=== PATIENT | male | born 1985 | race Caucasian/White ===

== ENCOUNTER 2018-07-11 19:54 | Emergency (ER) | payer OTHER ==
[2018-07-11 21:49] VITALS: BP 120/79
== END 2018-07-11 21:49 | disposition home or self-care (01) ==
LOC: ED 19:54
DX: S81.811A Laceration without foreign body, right lower leg, initial encounter (principal); J45.909 Unspecified asthma, uncomplicated; I10 Essential (primary) hypertension; W26.0XXA Contact with knife, initial encounter; Y93.89 Activity, other specified; Y92.89 Other specified places as the place of occurrence of the external cause; Y99.8 Other external cause status
CPT/HCPCS: 90715; J2001

== ENCOUNTER 2018-07-28 13:36 | Emergency (ER) | payer OTHER ==
[~2018-07-28] VITALS: Ht 182.9 cm; Wt 86.2 kg
[2018-07-28 13:38] VITALS: BP 143/88; Ht 182.9 cm; Wt 86.2 kg
== END 2018-07-28 15:00 | disposition home or self-care (01) ==
LOC: ED 13:36
DX: S81.011D Laceration without foreign body, right knee, subsequent encounter (principal); X58.XXXD Exposure to other specified factors, subsequent encounter

== ENCOUNTER 2018-10-22 22:31 | Emergency (ER) | payer SELFPAY ==
[~2018-10-22] VITALS: Ht 182.9 cm; Wt 82.6 kg
[2018-10-22 22:49] VITALS: Ht 182.9 cm; Wt 82.6 kg
[2018-10-22 23:50] LABS: CARBON DIOXIDE 28.7 mmol/L (21-32); CHLORIDE SERUM 104 mmol/L (98-107); CREATININE SERUM 1.1 mg/dL (0.7-1.3); GFR1 > 60 mL/min; GLUCOSE SERUM 133 mg/dL (74-106); POTASSIUM SERUM 3.6 mmol/L (3.5-5.1); SODIUM SERUM 138 mmol/L (136-145)
[2018-10-22 23:54] LABS: BASOPHIL % 0.3 % (0-2); PLATELET COUNT 281 x10^3mcL (130-400); RED CELL DISTRIBUTION WIDTH 12.2 % (11.5-14.5)
[2018-10-22 23:55] LABS: ALBUMIN 4.2 g/dL (3.4-5.0); ALKALINE PHOSPHATASE 58 U/L (46-116); ALT/SGPT 19 U/L (16-63); AST/SGOT 10 U/L (15-37); BILIRUBIN TOTAL 0.2 mg/dL (0.20-1.00); LIPASE 143 IU/L (73-393); TOTAL PROTEIN, SERUM 7.8 g/dL (6.4-8.2)
[2018-10-23 00:20] VITALS: BP 124/78
== END 2018-10-23 00:24 | disposition home or self-care (01) ==
LOC: ED 22:31
PROVIDERS: Emergency Medicine
DX: K52.9 Noninfective gastroenteritis and colitis, unspecified (principal); F17.210 Nicotine dependence, cigarettes, uncomplicated
CPT/HCPCS: J2270; J2405; J7030